=== PATIENT | male | born 1965 | race Caucasian/White ===

== ENCOUNTER 2018-11-18 21:36 | Emergency (ER) | payer OTHER ==
[~2018-11-18] VITALS: Ht 180.3 cm; Wt 102.1 kg
[~2018-11-18 21:36] MED LIST: IBUPROFEN 600600 M1 PO; NOHOMEMEDICATIONS; PERCOCET 5-3251 EACH PO; PREDNISONE 20 M20 M1 PO; TYLENOL EX-STR500 M2 PO
[2018-11-18] MEDS ORDERED: ALLOPURINOL 10100 M1 PO (22:24)
[2018-11-18] MEDS ORDERED: COLCHICINE0.6 MG PO (22:24)
[2018-11-18 22:38] VITALS: BP 130/87
== END 2018-11-18 22:39 | disposition home or self-care (01) ==
LOC: M.ERS 21:36
DX: M10.071 Idiopathic gout, right ankle and foot (principal)

== ENCOUNTER 2019-07-21 23:28 | Emergency (ER) | payer OTHER ==
[~2019-07-21] VITALS: Ht 180.3 cm; Wt 90.7 kg
[~2019-07-21 23:28] MED LIST changes: +ALLOPURINOL 10100 M1 PO; +COLCHICINE0.6 MG PO
[2019-07-22] MEDS ORDERED: NORCO 5-325 TA1 EAC1 PO (00:52)
[2019-07-22 01:11] VITALS: BP 149/71
== END 2019-07-22 01:12 | disposition home or self-care (01) ==
LOC: M.ERS 23:28
DX: F10.129 Alcohol abuse with intoxication, unspecified (principal); Y90.7 Blood alcohol level of 200-239 mg/100 ml; M54.5 Low back pain; M25.551 Pain in right hip; M54.2 Cervicalgia; F17.210 Nicotine dependence, cigarettes, uncomplicated; M10.9 Gout, unspecified

== ENCOUNTER 2020-08-12 21:27 | Emergency (ER) | payer OTHER ==
[~2020-08-12] VITALS: Ht 180.3 cm; Wt 102.1 kg
[~2020-08-12 21:27] MED LIST changes: +NORCO 5-325 TA1 EAC1 PO
[2020-08-12 23:13] VITALS: BP 136/78
== END 2020-08-12 23:15 | disposition left against medical advice (07) ==
LOC: M.ERS 21:27
DX: S70.02XA Contusion of left hip, initial encounter (principal); F10.129 Alcohol abuse with intoxication, unspecified; Y90.9 Presence of alcohol in blood, level not specified; X50.9XXA Other and unspecified overexertion or strenuous movements or postures, initial encounter; Y93.89 Activity, other specified; Y92.89 Other specified places as the place of occurrence of the external cause; Y99.8 Other external cause status

== ENCOUNTER 2021-03-02 | Emergency (ER) | payer OTHER ==
[~2021-03-02] VITALS: Ht 180.3 cm; Wt 113.4 kg
[2021-03-02 00:29] VITALS: BP 146/78
--- NOTE | 2021-03-02 17:26 | EKG ---
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: [place] : 1965 Requested By: Nury Miles Order Number: [id number] MD: Adam Sandoval Measurements Intervals [place] Rate: 113 P: 43 ID: [id number] QRS: 64 QRSD: 106 T: 33 QT: 329 QTc: 451 Interpretive Statements Sinus tachycardia Abnormal R-wave progression, early transition Borderline T abnormalities, anterior leads Compared to ECG 08/25/2011 13:46:17 T-wave abnormality now present Sinus rhythm no longer present Incomplete right bundle-branch block no longer present Electronically Signed On 03-02-2021 17:25:58 CDT by Adam Sandoval [email or web address] <ELECTRONICALLY SIGNED> By: Adam Sandoval MD, FACC 03/02/21 1725 0002 0002 Adam Sandoval MD, FAC /EPI
== END 2021-03-02 00:30 | disposition home or self-care (01) ==
LOC: M.ERS
DX: F41.0 Panic disorder [episodic paroxysmal anxiety] (principal); R20.0 Anesthesia of skin; R20.2 Paresthesia of skin; R06.02 Shortness of breath